=== PATIENT | female | born 1985 | race Caucasian/White ===

== ENCOUNTER 2019-02-09 06:23 | Day surgery (SDC) | payer MEDICAID ==
[2019-02-09] MEDS ORDERED: Lidocaine 1% with EPINEPHrine 1:100,000 50 ML MDV ONE (06:42)
[2019-02-09] MEDS ORDERED: Bupivacaine 0.5% 50 ML MDV ONE (06:42)
[2019-02-09] MEDS ORDERED: Sodium Chloride 0.9% 1,000 ML IV SCH (07:30)
[2019-02-09] MEDS ORDERED: ceFAZolin 2 GM in Sodium Chloride 0.9% 50 ML IV ONE (07:30)
[2019-02-09] MEDS ORDERED: metroNIDAZOLE/Normal Saline 500 MG in Premix Bag 1 BAG IV ONE (07:30)
[2019-02-09] MEDS ORDERED: fentaNYL 250 MCG/5 ML SDV ONE ×2 (07:39→08:46)
[2019-02-09] MEDS ORDERED: Ondansetron 4 MG/2 ML SDV ONE (07:40)
[2019-02-09] MEDS ORDERED: Propofol 200 MG/20 ML SDV ONE (07:40)
[2019-02-09] MEDS ORDERED: Dexamethasone 4 MG/ML SDV ONE (07:40)
[2019-02-09] MEDS ORDERED: Rocuronium 50 MG/5 ML Vial ONE (07:40)
[2019-02-09] MEDS ORDERED: Neostigmine Methylsulfate 1 MG/ML 5 ML Syringe ONE (07:40)
[2019-02-09] MEDS ORDERED: Glycopyrrolate 0.2 MG/ML 5 ML MDV ONE (07:40)
[2019-02-09] MEDS ORDERED: Ketorolac 60 MG/2 ML SDV ONE (09:35)
[2019-02-09] MEDS ORDERED: Scopolamine 1.5 MG Transdermal Patch ONE (09:48)
[2019-02-09] MEDS ORDERED: hydrOXYzine HCL 100 MG/2 ML SDV IM PRN (09:50)
[2019-02-09] MEDS ORDERED: Zolpidem 5 MG Tab PO PRN (09:50)
[2019-02-09] MEDS ORDERED: Acetaminophen/HYDROcodone 325-5 MG Tab PO PRN (09:50)
[2019-02-09] MEDS ORDERED: Benzocaine/Cetylpyridinium/Menthol Lozenge MUCMEM PRN (09:50)
[2019-02-09] MEDS ORDERED: Docusate Sodium 100 MG Cap PO PRN (09:50)
[2019-02-09] MEDS ORDERED: fentaNYL 100 MCG/2 ML SDV IVPUSH PRN (09:50)
[2019-02-09] MEDS ORDERED: hydrOXYzine HCL 100 MG/2 ML SDV IM ONE (10:12)
--- NOTE | 2019-02-09 11:34 | OR ---
DATE OF PROCEDURE: 02/09/2019 SURGEON: Vivek Brantley MD PROCEDURE: Laparoscopic umbilical hernia repair. COMPLICATIONS: None. MANAGER MARKET: None. ANESTHESIA: General/local. INDICATIONS: This is a 33-year-old female with a chronic hernia requiring repair. RISKS: Risks, benefits, alternatives, and limitations including, but not limited to infection, bleeding, and injury to abdominal structures were explained to the patient, who wished to proceed. PROCEDURE IN DETAIL: The patient was placed in supine position. On the right costal margin, an incision was made and the abdomen was entered under open direct technique. Two additional 5 mm ports were placed in the right abdomen. The umbilical hernia was readily identified. The patient requested hernia repair without mesh, therefore, this would be a primary repair. The peritoneum was then dissected. The hernia had been reduced preoperatively, but this did contain a lipoma, which was removed. The defect was then repaired with [id number] Stratafix sutures. The defect itself was approximately 1 cm. The peritoneum was then reapproximated also with Stratafix. The air was removed. The wounds were closed with 3-0 Vicryl and 4-0 Vicryl in an interrupted running fashion and Dermabond was applied. The patient tolerated the procedure well. Vivek Brantley MD /[id number]
[2019-02-09 12:32] VITALS: BP 96/50; PULSE 96
== END 2019-02-09 13:06 | disposition home or self-care (01) ==
LOC: JP.SDS 06:23
PROVIDERS: ATTEND Surgery
DX: K42.9 Umbilical hernia without obstruction or gangrene (principal); D17.5 Benign lipomatous neoplasm of intra-abdominal organs; K21.9 Gastro-esophageal reflux disease without esophagitis; E66.01 Morbid (severe) obesity due to excess calories; Z88.0 Allergy status to penicillin; Z88.7 Allergy status to serum and vaccine; Z88.8 Allergy status to other drugs, medicaments and biological substances; Z68.42 Body mass index [BMI] 45.0-49.9, adult; Z87.891 Personal history of nicotine dependence
CPT/HCPCS: 81025; A9270-GY; J0171; J0690; J1100; J1885; J2405; J2704; J2710; J2795; J3010; J3410; J3490; J7030; J7050

== ENCOUNTER 2019-03-13 08:45 | Day surgery (SDC) | payer MEDICAID ==
[~2019-03-13 08:45] MED LIST: Bupivacaine 0.5%/EPINEPHrine 1:200,000 50 ML MDV ONE
[2019-03-13] MEDS ORDERED: fentaNYL 100 MCG/2 ML SDV ONE ×3 (09:47→11:13)
[2019-03-13] MEDS ORDERED: Propofol 200 MG/20 ML SDV ONE ×4 (09:47→11:05)
[2019-03-13] MEDS ORDERED: Midazolam 1 MG/ML 2 ML SDV ONE ×2 (09:47→10:40)
[2019-03-13] MEDS: Sodium Chloride 0.9% 1,000 ML IV SCH ×2 (09:51→12:04)
[2019-03-13] MEDS ORDERED: Clindamycin Phosphate 900 MG in Sodium Chloride 0.9% 100 ML IV ONE (10:00)
[2019-03-13] MEDS ORDERED: Glycopyrrolate 0.2 MG/ML 5 ML MDV ONE (10:27)
[2019-03-13] MEDS ORDERED: metroNIDAZOLE/Normal Saline 500 MG in Premix Bag 1 BAG IV ONE (10:30)
[2019-03-13] MEDS ORDERED: fentaNYL 100 MCG/2 ML SDV IVPUSH ONE ×2 (11:36→11:58)
[2019-03-13] MEDS ORDERED: hydrOXYzine HCL 100 MG/2 ML SDV IM ONE (11:36)
[2019-03-13] MEDS ORDERED: Acetaminophen/oxyCODONE 325-5 MG Tab PO ONE (13:00)
[2019-03-13 14:18] VITALS: BP 121/80; PULSE 100
--- NOTE | 2019-03-14 11:59 | OR ---
DATE OF PROCEDURE: 03/13/2019 SURGEON: Vivek Brantley MD PROCEDURE: Ventral hernia repair, open, incarcerated, recurrent. COMPLICATIONS: None. DIAL PAINTER: None. ANESTHESIA: MAC/local. FINDINGS: Approximately 2 cm ventral hernia superior to the umbilicus. INDICATIONS: A pleasant, 33-year-old female, requiring ventral hernia repair, which is recurrent. The patient does not want any mesh placed. RISKS: Risks, benefits, alternatives, and limitations including, but not limited to, infection, bleeding, injury to abdominal structures, abscess, seroma, fistula formation, and other risks not listed were explained to the patient who wished to proceed. PROCEDURE IN DETAIL: The patient was placed in supine position. A midline abdominal incision was made approximately 4 cm in size. This was carried down with electrocautery to the sac, which was then subsequently opened. The patient was noted to have incarcerated small bowel, which had a small knuckle of bowel partially obstructed within the hernia itself. This was then gently resected. No evidence of serosal tear or injury was noted during mobilization of the incarcerated small bowel. This was then placed in the abdomen. The sac was then freed on all the edges. The hernia, per the patient's request, was then closed without mesh. This was repaired with #1 Vicryl in an interrupted fashion. This was performed by using #1 Vicryl sutures, placing them and then tying then at the end. Subcutaneous tissues were closed with 3-0 Vicryl. Skin was closed with 4-0 Vicryl. Dressings were applied. The patient tolerated the procedure well. Vivek Brantley MD /[id number]
== END 2019-03-13 14:27 | disposition home or self-care (01) ==
LOC: JP.SDS 08:45
PROVIDERS: ATTEND Surgery
DX: K43.0 Incisional hernia with obstruction, without gangrene (principal); F17.200 Nicotine dependence, unspecified, uncomplicated; E66.01 Morbid (severe) obesity due to excess calories; Z68.41 Body mass index [BMI] 40.0-44.9, adult
CPT/HCPCS: 49566; 81025; A9270; J0171; J1100; J2250; J2704; J2795; J3010; J3410; J3490; J7030; J7050